=== PATIENT | female | born 1985 | race Two or more races ===

== ENCOUNTER 2018-10-20 15:04 | Emergency (ER) | payer SELFPAY ==
[~2018-10-20] VITALS: Ht 154.9 cm; Wt 77.1 kg
[2018-10-20 15:29] VITALS: BP 139/85
[2018-10-20] MEDS ORDERED: PRED50TA PO (15:31)
[2018-10-20] MEDS ORDERED: SULF1TAB23 PO (15:31)
[2018-10-20] MEDS ORDERED: CETI10TA22 PO (15:31)
--- NOTE | 2018-10-20 15:31 | PHYS DOC ---
Adult General Chief Complaint Chief Complaint: INSECT BITE HPI HPI Patient is a 33 year old female who presents with an insect bite on the right bicep region that she noted yesterday. Patient states the redness began today. Denies any fever. Denies any anaphylactic-type reaction symptoms. Review of Systems Review of Systems Constitutional: Denies fever or chills [] : Denies dysuria or hematuria [] Musculoskeletal: Denies back pain or joint pain [] Integument: Insect bite to the right biceps region Neurologic: Denies headache, focal weakness or sensory changes [] All other systems were reviewed and found to be within normal limits, except as documented in this note. Physical Exam Physical Exam Constitutional: Well developed, well nourished, no acute distress, non-toxic appearance. [] Skin: Right biceps region with an area of erythema and induration approximately 8 x 6 cm. There is no drainage from the area. There is no warmth to the area. There is no fluctuance. There is no drainage. Back: No tenderness, no CVA tenderness. [] Extremities: No tenderness, no cyanosis, no clubbing, ROM intact, no edema. [] Neurologic: Alert and oriented X 3, normal motor function, normal sensory function, no focal deficits noted. [] Psychologic: Affect normal, judgement normal, mood normal. [] EKG EKG [] Radiology/Procedures Radiology/Procedures [] Course & Med Decision Making Course & Med Decision Making Pertinent Labs and Imaging studies reviewed. (See chart for details) This is a 33-year-old female patient presented to the ED today with right biceps insect bite. There is quite a bit of swelling and erythema to the area, no fluctuance, no drainage.We will put patient on Benadryl, prednisone and Bactrim. Follow-up with primary care doctor in one week. Tetanus up-to-date. Dragon Disclaimer Dragon Disclaimer This electronic medical record was generated, in whole or in part, using a voice recognition dictation system. Departure Departure Impression: Primary Impression: Insect bite Disposition: 01 HOME, SELF-CARE Condition: STABLE Referrals: ESTEPHANIA DU DO (PCP) follow up in 1 week with your doctor Patient Instructions: Insect Bite, [id number] Additional Instructions: You were evaluated in the medicine for an insect bite to the right upper extremity. Take the prescribed medications as ordered, ensure you complete your antibiotics. Your prednisone. Please take Zyrtec every morning and Benadryl tonight. Follow-up with your doctor in one week, come back to the ED if symptoms worsen. Scripts Cetirizine Hcl (ZYRTEC) 10 Mg Tablet 1 TAB PO DAILY, #30 TAB 2 Refills Prov: OSMAR HERNANDEZ APRN 10/20/18 Prednisone (PREDNISONE) 50 Mg Tablet 1 TAB PO DAILY, #5 TAB Prov: OSMAR HERNANDEZ APRN 10/20/18 Sulfamethoxazole/Trimethoprim (BACTRIM 400-80 MG TABLET) 1 Each Tablet 1 TAB PO BID, #20 TAB Prov: OSMAR HERNANDEZ APRN 10/20/18 Problem Qualifiers Primary Impression: Insect bite Encounter type: initial encounter Site of insect bite: upper arm Laterality : right Qualified Codes: S40.861A - Insect bite (nonvenomous) of right upper arm, initial encounter; W57.XXXA - Bitten or stung by nonvenomous insect and other nonvenomous arthropods, initial encounter OSMAR HERNANDEZ APRN Oct 20, 2018 15:31
== END 2018-10-20 15:55 | disposition home or self-care (01) ==
LOC: ER 15:04
DX: S40.861A Insect bite (nonvenomous) of right upper arm, initial encounter (principal); W57.XXXA Bitten or stung by nonvenomous insect and other nonvenomous arthropods, initial encounter; Y93.89 Activity, other specified; Y92.89 Other specified places as the place of occurrence of the external cause; Y99.8 Other external cause status
CPT/HCPCS: 99283